=== PATIENT | female | born 1960 ===

== ENCOUNTER 2019-06-18 10:09 | Inpatient (IN) | payer OTHER ==
[~2019-06-18] VITALS: Ht 162.6 cm; Wt 101.2 kg
[2019-06-18] MEDS ORDERED: SYNTHROID150 MCG PO (10:40)
[2019-06-18] MEDS ORDERED: ATENOLOL25 MG PO (10:40)
== END 2019-06-23 12:25 | DRG 743 ==
LOC: O/R 11:45 → OB/GYN 06-20 05:59 → SURH 06-20 07:30 → OB/GYN 06-20 18:00
PROVIDERS: ADMIT Obstetrics & Gynecology
PROC: 0UQ20ZZ Repair Bilateral Ovaries, Open Approach (ICD-10-PCS; 2019-06-20)
PROC: 0UT90ZZ Resection of Uterus, Open Approach (ICD-10-PCS; principal; 2019-06-20 07:30)
DX: D25.2 Subserosal leiomyoma of uterus (principal); N85.01 Benign endometrial hyperplasia; N72 Inflammatory disease of cervix uteri